=== PATIENT | female | born 1975 | race Two or more races ===

== ENCOUNTER → 2024-03-27 07:16 | Outpatient (CLI) | payer OTHER | END | disposition home or self-care (01) | LOC: NUCLEAR 06:15 | PROVIDERS: ATTEND Internal Medicine Rheumatology | DX: M06.4 Inflammatory polyarthropathy (principal) ==

== ENCOUNTER 2024-03-28 10:20 | Outpatient (CLI) | payer OTHER | END 2024-03-28 10:31 | disposition home or self-care (01) | LOC: SONOGRAMA 10:20 | PROVIDERS: ATTEND Internal Medicine Rheumatology | DX: M06.09 Rheumatoid arthritis without rheumatoid factor, multiple sites (principal) ==